=== PATIENT | male | born 1995 | race Caucasian/White ===

== ENCOUNTER 2018-03-05 19:29 | Observation (INO) | payer SELFPAY ==
[~2018-03-05] VITALS: Ht 182.9 cm; Wt 75.0 kg
[2018-03-05 19:31] VITALS: BP 101/50; PULSE 135; RESP 17; TEMP 98.9; O2SAT 94
[2018-03-05] MEDS ORDERED: SODIUM CHLOR 0.9% 1000 ML INJ 1,000 ML IV ONE (19:31)
[2018-03-05 19:35] VITALS: RESP 17; O2SAT 94
--- NOTE | 2018-03-05 19:39 | PD ---
HPI Chief Complaint: Seizure Time Seen by Provider: 19:31 Travel History International Travel<30 days: No Contact w/Intl Traveler<30days: No Traveled to known affect area: No History of Present Illness HPI This is a 23-year-old male with unknown medical history, presents via EMS after he had a reported 5 minute tonic-clonic seizure while at dinner with his girlfriend's parents. When paramedics arrived they state they found him postictal with frothing at the mouth. The patient was combative and not responding to questions. Per medics report that he appeared to start to be about to seize again and they administered 4 mg of Versed IV. Blood glucose was reported to be 141. Girlfriend reported to the paramedics that the patient had been playing video games all day. There is no reported substance ingestion. No further information could be obtained. [facility] Social History Tobacco Use: No (Denies) Allergies-Medications (Allergen,Severity, Reaction): Coded Allergies: No Allergy Information Available (Unverified , 03/05/18) Reported Meds & Prescriptions Reported Meds & Active Scripts Active No Active Prescriptions or Reported Medications Review of Systems ROS Limitations: Altered Mental Status (Postictal and not responding to questions.) Except as stated in HPI: all other systems reviewed are Neg Physical Exam Narrative GENERAL: Well developed well-nourished male who presents via EMS with altered sensorium. Patient is not responsive to questions. Patient is not actively seizing. SKIN: Focused skin assessment warm/dry. HEAD: Atraumatic. Normocephalic. EYES: Pupils equal and round. There is a right sided gaze. No scleral icterus. No injection or drainage. ENT: No nasal bleeding or discharge. Mucous membranes pink and moist. NECK: Trachea midline. No JVD. CARDIOVASCULAR: Sinus tachycardia with a rate in the 120s. No murmur appreciated. RESPIRATORY: No accessory muscle use. Clear to auscultation. Breath sounds equal bilaterally. GASTROINTESTINAL: Abdomen soft, non-tender, nondistended. Hepatic and splenic margins not palpable. MUSCULOSKELETAL: No obvious deformities. No clubbing. No cyanosis. No edema. NEUROLOGICAL: Obtunded however arousable to sternal rub. Right-sided lateral eye gaze. Observed moving extremities occasionally however not to command or cooperating with exam. Data Data Last Documented VS Orders Orders Complete Blood Count With Diff (03/05/18 19:31) Alcohol (Ethanol) (03/05/18 19:31) Drug Screen, Random Urine (03/05/18 19:31) Ct Brain W/O Iv Contrast(Rout) (03/05/18 ) Blood Glucose (03/05/18 19:31) Ecg Monitoring (03/05/18 19:31) Iv Access Insert/Monitor (03/05/18 19:31) Oximetry (03/05/18 19:31) Comprehensive Metabolic Panel (03/05/18 19:31) Sodium Chlor 0.9% 1000 Ml Inj (Ns 1000 M (03/05/18 19:31) Sodium Chloride 0.9% Flush (Ns Flush) (03/05/18 19:45) Fosphenytoin Inj (Cerebyx Inj) (03/05/18 20:15) Prochlorperazine Inj (Compazine Inj) (03/05/18 20:30) Lorazepam Inj (Ativan Inj) (03/05/18 21:15) Eeg Study (03/05/18 ) Consult Neurology (03/05/18 ) Place In Observation (03/05/18 ) Vital Signs (Adult) Q4H (03/05/18 21:10) Neuro Checks Q4H (03/05/18 21:10) Activity Oob With Assistance (03/05/18 21:10) Powder And Primer Canning Leader / Telemetry .CONTINUOUS (03/05/18 21:10) Intake + Output AMANDA.QSHIFT (03/05/18 21:10) Diet Regular Basic (03/06/18 Breakfast) Sodium Chlor 0.9% 1000 Ml Inj (Ns 1000 M (03/05/18 21:10) Sodium Chloride 0.9% Flush (Ns Flush) (03/05/18 21:15) Sodium Chloride 0.9% Flush (Ns Flush) (03/06/18 09:00) Comprehensive Metabolic Panel (03/06/18 06:00) Complete Blood Count With Diff (03/06/18 06:00) Scd Bilateral/Knee High AMANDA.BID (03/05/18 21:10) Sergey Bilateral/Knee High AMANDA.QSHIFT (03/05/18 21:13) Acetaminophen (Tylenol) (03/05/18 21:15) Docusate Sodium-Senna (Kaitlyn-Colace) (03/06/18 09:00) Magnesium Hydroxide Liq (Milk Of Magnesi (03/05/18 21:15) Sennosides (Senokot) (03/05/18 21:15) Bisacodyl Supp (Dulcolax Supp) (03/05/18 21:15) Lactulose Liq (Lactulose Liq) (03/05/18 21:15) Admit Order (Ed Use Only) (03/05/18 21:15) Mri Brain W/O Contrast (03/06/18 ) Labs Laboratory Tests Test 03/05/18 19:30 White Blood Count 10.1 TH/MM3 Red Blood Count 4.69 MIL/MM3 Hemoglobin 13.7 GM/DL Hematocrit 40.6 % Mean Corpuscular Volume 86.6 FL Mean Corpuscular Hemoglobin 29.2 PG Mean Corpuscular Hemoglobin Concent 33.7 % Red Cell Distribution Width 12.2 % Platelet Count 298 TH/MM3 Mean Platelet Volume 8.1 FL Neutrophils (%) (Auto) 56.7 % Lymphocytes (%) (Auto) 31.2 % Monocytes (%) (Auto) 9.2 % Eosinophils (%) (Auto) 2.1 % Basophils (%) (Auto) 0.8 % Neutrophils # (Auto) 5.7 TH/MM3 Lymphocytes # (Auto) 3.1 TH/MM3 Monocytes # (Auto) 0.9 TH/MM3 Eosinophils # (Auto) 0.2 TH/MM3 Basophils # (Auto) 0.1 TH/MM3 CBC Comment DIFF FINAL Differential Comment Blood Urea Nitrogen 12 MG/DL Creatinine 0.93 MG/DL Random Glucose 88 MG/DL Total Protein 7.1 GM/DL Albumin 3.6 GM/DL Calcium Level 8.2 MG/DL Alkaline Phosphatase 95 U/L Aspartate Amino Transf (AST/SGOT) 21 U/L Alanine Aminotransferase (ALT/SGPT) 29 U/L Total Bilirubin 0.3 MG/DL Sodium Level 141 MEQ/L Potassium Level 3.8 MEQ/L Chloride Level 105 MEQ/L Carbon Dioxide Level 17.8 MEQ/L Anion Gap 18 MEQ/L Estimat Glomerular Filtration Rate 103 ML/MIN Urine Opiates Screen NEG Urine Barbiturates Screen NEG Urine Amphetamines Screen NEG Urine Benzodiazepines Screen NEG Urine Cocaine Screen NEG Urine Cannabinoids Screen NEG Ethyl Alcohol Level LESS THAN 3 MG/DL MDM Medical Decision Making Medical Screen Exam Complete: Yes Emergency Medical Condition: Yes Differential Diagnosis New onset seizure versus intracranial lesion versus intracranial hemorrhage versus substance-induced seizure Narrative Course 23-year-old male presents after having tonic-clonic seizure. Patient was given Versed in the field. Initially we are told the patient had no history of seizure disorder. The patient was loaded with fosphenytoin, 1 g. We were able to obtain history from patient's mother that he had had 3 seizures when he was a young child. The patient will be admitted and have an EEG. Case discussed with the admitting physician, and she is amenable to the plan. Diagnosis Primary Impression: Seizure Admitting Information Admitting Physician Requests: Observation Scripts No Active Prescriptions or Reported Meds Charlie Anderson MD Mar 05, 2018 19:39
[2018-03-05] MEDS ORDERED: SODIUM CHLORIDE 0.9% FLUSH 10 ML FLUSH IVF PRN (19:45)
--- NOTE | 2018-03-05 20:04 | RADRPT ---
EXAM DATE: 03/05/2018 8:00 PM EDT AGE/SEX: 23 years / Male INDICATIONS: Seizure with right sided gaze. CLINICAL DATA: This is the patient's initial encounter. Patient reports that signs and symptoms have been present for 1 day and indicates a pain score of 0/10. MEDICAL/SURGICAL HISTORY: None. None. RADIATION DOSE: 56.35 CTDI (mGy) COMPARISON: No prior [place] exams available for comparison. TECHNIQUE: CT of the head without contrast. Using automated exposure control and adjustment of the mA and/or kV according to patient size, radiation dose was kept as low as reasonably achievable to ob tain optimal diagnostic quality images. FINDINGS: Cerebrum: The ventricles are normal for age. No evidence of midline shift, mass lesion, hemorrhage or acute infarction. No extraaxial fluid collections are seen. Posterior Fossa: The cerebellum and brainstem are intact. The 4th ventricle is midline. The cerebe llopontine angle is unremarkable. Extracranial: The visualized portion of the orbits is intact. Skull: The calvaria is intact. No evidence of skull fracture. CONCLUSION: 1. Negative CT Head non contrast. Electronically signed by: Donavan Newman MD 03/05/2018 8:03 PM EDT
[2018-03-05 20:14] LABS: AUTOMATED NEUTROPHIL # 5.7 TH/MM3 (1.8-7.7); BASOPHIL # 0.1 TH/MM3 (0-0.2); BASOPHIL % 0.8 % (0.0-2.0); EOSINOPHIL # 0.2 TH/MM3 (0-0.4); EOSINOPHIL % 2.1 % (0.0-4.0); HEMATOCRIT 40.6 % (39.0-51.0); HEMOGLOBIN 13.7 GM/DL (13.0-17.0); LYMPH % 31.2 % (9.0-44.0); LYMPHOCYTE # 3.1 TH/MM3 (1.0-4.8); MEAN CELL VOLUME 86.6 FL (80.0-100.0); MEAN CORPUSCULAR HEMOGLOBIN 29.2 PG (27.0-34.0); MEAN CORPUSCULAR HGB CONC 33.7 % (32.0-36.0); MEAN PLATELET VOLUME 8.1 FL (7.0-11.0); MONO % 9.2 % (0.0-8.0); MONOCYTE # 0.9 TH/MM3 (0-0.9); NEUT % 56.7 % (16.0-70.0); PLATELET COUNT 298 TH/MM3 (150-450); RED BLOOD COUNT 4.69 MIL/MM3 (4.50-5.90); RED CELL DISTRIBUTION WIDTH 12.2 % (11.6-17.2); WHITE BLOOD COUNT 10.1 TH/MM3 (4.0-11.0)
[2018-03-05] MEDS ORDERED: FOSPHENYTOIN INJ 1,000 MGPE in SODIUM CHLORIDE 0.9% INJ 50 ML IV ONE (20:15)
[2018-03-05] MEDS ORDERED: PROCHLORPERAZINE INJ 10 MG/2 ML VIAL IV PUSH ONE (20:30)
[2018-03-05 20:33] LABS: ALBUMIN 3.6 GM/DL (3.4-5.0); BICARBONATE 17.8 MEQ/L (21.0-32.0); BLOOD UREA NITROGEN 12 MG/DL (7-18); CALCIUM 8.2 MG/DL (8.5-10.1); CHLORIDE 105 MEQ/L (98-107); CREATININE 0.93 MG/DL (0.60-1.30); GLOMERULAR FILTRATION RATE 103 ML/MIN (>89); GLUCOSE,RANDOM 88 MG/DL (74-106); SODIUM (NA) 141 MEQ/L (136-145)
[2018-03-05 20:34] LABS: ALT (GPT) 29 U/L (12-78); AST (GOT) 21 U/L (15-37)
[2018-03-05 20:37] LABS: ALKALINE PHOSPHATASE 95 U/L (45-117); TOTAL BILIRUBIN ADULT 0.3 MG/DL (0.2-1.0); TOTAL PROTEIN 7.1 GM/DL (6.4-8.2)
--- NOTE | 2018-03-05 21:13 | HHI.HP ---
[facility] No Primary Care Physician Admission Diagnosis Diagnoses: (1) Seizure Diagnosis: Principal Travel History International Travel<30 Days: No Contact w/Intl Traveler <30 Da: No Traveled to Known Affected Are: No History of Present Illness This is a 23-year-old male with no reported PMH who is brought to the ER by EMS after seizure-like activity. Pt's friend at bedside witnessed episode, states they were out to dinner when pt had acute onset of unresponsiveness and drooling at the mouth. Friend states pt slumped over and was noted to have some shaking, no incontinence. States episode lasted approx 3-4 minutes. EMS thought pt appeared to start having another seizure and administered Versed 4mg. Patient unable to provide history secondary to postictal state and medication. Per fiance at bedside, pt w/ h/o seizure as a child (age 5yrs) but no seizures since then. States pt was playing video games all day today. On arrival, BP 101/50, HR 135, O2 sat 94% on RA, Afebrile. CBC unremarkable. Chemistry unremarkable except for AG 18. Urine Drug Screen negative. Alcohol negative. CT Head with no acute findings. No further seizure activity while in the ER. S/p Cerebyx 1gm IV. Review of Systems Except as stated in HPI: all other systems reviewed are Neg ROS: Unable to obtain secondary to postictal state and medication Past Family Social History Past Medical History PMH: None Past Surgical History PAST SURGICAL HISTORY: None Allergies: Coded Allergies: No Allergy Information Available (Unverified , 03/05/18) Family History PAST FAMILY HISTORY: Reviewed. No h/o DM or CAD Social History PAST SOCIAL HISTORY: Reportedly negative for alcohol, tobacco or drugs. Physical Exam Vital Signs Vital Signs Date Time Temp Pulse Resp B/P (MAP) Pulse Ox O2 Delivery O2 Flow Rate FiO2 03/05/18 19:35 17 94 Room Air 03/05/18 19:33 135 17 94 03/05/18 19:31 98.9 135 17 101/50 (67) 94 Physical Exam PE: GENERAL: Young white male in no acute distress, lethargic/postictal, not answering questions. Fiance and friend at bedside. HEENT: PERRLA, EOMI. No scleral icterus or conjunctival pallor. No lid lag or facial droop. CARDIOVASCULAR: Regular rate and rhythm. No obvious murmurs to auscultation. No chest tenderness to palpation. RESPIRATORY: No obvious rhonchi or wheezing. Clear to auscultation. Breath sounds equal bilaterally. GASTROINTESTINAL: Abdomen soft, non-tender, nondistended. BS normal. MUSCULOSKELETAL: Extremities without clubbing, cyanosis, or edema. No obvious deformities. NEUROLOGICAL: Postictal/lethargic. No focal neurologic deficits. Moving both upper and lower extremities spontaneously. Laboratory Laboratory Tests Test 03/05/18 19:30 White Blood Count 10.1 Red Blood Count 4.69 Hemoglobin 13.7 Hematocrit 40.6 Mean Corpuscular Volume 86.6 Mean Corpuscular Hemoglobin 29.2 Mean Corpuscular Hemoglobin Concent 33.7 Red Cell Distribution Width 12.2 Platelet Count 298 Mean Platelet Volume 8.1 Neutrophils (%) (Auto) 56.7 Lymphocytes (%) (Auto) 31.2 Monocytes (%) (Auto) 9.2 Eosinophils (%) (Auto) 2.1 Basophils (%) (Auto) 0.8 Neutrophils # (Auto) 5.7 Lymphocytes # (Auto) 3.1 Monocytes # (Auto) 0.9 Eosinophils # (Auto) 0.2 Basophils # (Auto) 0.1 CBC Comment DIFF FINAL Differential Comment Blood Urea Nitrogen 12 Creatinine 0.93 Random Glucose 88 Total Protein 7.1 Albumin 3.6 Calcium Level 8.2 Alkaline Phosphatase 95 Aspartate Amino Transf (AST/SGOT) 21 Alanine Aminotransferase (ALT/SGPT) 29 Total Bilirubin 0.3 Sodium Level 141 Potassium Level 3.8 Chloride Level 105 Carbon Dioxide Level 17.8 Anion Gap 18 Estimat Glomerular Filtration Rate 103 Urine Opiates Screen NEG Urine Barbiturates Screen NEG Urine Amphetamines Screen NEG Urine Benzodiazepines Screen NEG Urine Cocaine Screen NEG Urine Cannabinoids Screen NEG Ethyl Alcohol Level LESS THAN 3 Result Diagram: 03/05/18192903/05/181929 Caprini VTE Risk Assessment Caprini VTE Risk Assessment: No/Low Risk (score <= 1) Caprini Risk Assessment Model Point Value = 1 Point Value = 2 Point Value = 3 Point Value = 5 Age 41-60 Minor surgery BMI > 25 kg/m2 Swollen legs Varicose veins or History of unexplained or recurrent spontaneous Oral contraceptives or hormone replacement Sepsis (< 1 month) Serious lung disease, including pneumonia (< 1 month) Abnormal pulmonary function Acute myocardial infarction Congestive heart failure (< 1 month) History of inflammatory bowel disease Medical patient at bed rest Age 61-74 Arthroscopic surgery Major open surgery (> 45 min) Laparoscopic surgery (> 45 min) Malignancy Confined to bed (> 72 hours) Immobilizing plaster cast Central venous access Age >= 75 History of VTE Family history of VTE Factor V Leiden Prothrombin [id number] Lupus anticoagulant Anticardiolipin antibodies Elevated serum homocysteine Heparin-induced thrombocytopenia Other congenital or acquired thrombophilia Stroke (< 1 month) Elective arthroplasty Hip, pelvis, or leg fracture Acute spinal cord injury (< 1 month) Prophylaxis Regimen Total Risk Factor Score Risk Level Prophylaxis Regimen 0-1 Low Early ambulation 2 Moderate Order ONE of the following: *Sequential Compression Device (SCD) *Heparin 5000 units SQ BID 3-4 Higher Order ONE of the following medications: *Heparin 5000 units SQ TID *Enoxaparin/Lovenox 40 mg SQ daily (WT < 150 kg, CrCl > 30 mL/min) *Enoxaparin/Lovenox 30 mg SQ daily (WT < 150 kg, CrCl > 10-29 mL/min) *Enoxaparin/Lovenox 30 mg SQ BID (WT < 150 kg, CrCl > 30 mL/min) AND/OR *Sequential Compression Device (SCD) 5 or more Highest Order ONE of the following medications: *Heparin 5000 units SQ TID (Preferred with Epidurals) *Enoxaparin/Lovenox 40 mg SQ daily (WT < 150 kg, CrCl > 30 mL/min) *Enoxaparin/Lovenox 30 mg SQ daily (WT < 150 kg, CrCl > 10-29 mL/min) *Enoxaparin/Lovenox 30 mg SQ BID (WT < 150 kg, CrCl > 30 mL/min) AND *Sequential Compression Device (SCD) Assessment and Plan Problem List: (1) Seizure ICD Code: R56.9 - Unspecified convulsions Assessment and Plan A/P: 1. Seizure: x1, witnessed by family/friends, no h/o seizure activity except as a child (5yrs old) likely febrile seizure, not on anticonvulsants per family/ friends, s/p Cerebyx 1gm in ER. +postictal/lethargic. CT Head w/ no acute findings, images reviewed by me. Neuro Checks. Urine Drug Screen negative. Check MRI Brain to eval for underlying lesion/tumor, EEG, Consult Neurology for further eval/recommendations. Ativan prn. Seizure Precautions. 2. DVT Prophylaxis: SCD/Teds 3. Social work for d/c planning as needed. 4. Case discussed w/ ER physician at length, labs/records/imaging reviewed by me. Claudette Daniel MD Mar 05, 2018 21:13
[2018-03-05] MEDS ORDERED: LORazepam 2 MG/ML VIAL IV PUSH PRN (21:15)
[2018-03-05] MEDS ORDERED: SODIUM CHLORIDE 0.9% FLUSH 10 ML FLUSH IV FLUSH PRN (21:15)
[2018-03-05] MEDS ORDERED: BISACODYL 10 MG SUPP RECTAL PRN (21:15)
[2018-03-05] MEDS ORDERED: MAGNESIUM HYDROXIDE SUSP 30 ML CUP PO PRN (21:15)
[2018-03-05] MEDS ORDERED: SENNOSIDES 8.6 MG TAB PO PRN (21:15)
[2018-03-05] MEDS ORDERED: ACETAMINOPHEN 325 MG TAB PO PRN (21:15)
[2018-03-05] MEDS ORDERED: LACTULOSE SYRUP 20 GM/30 ML CUP PO PRN (21:15)
[2018-03-05] MEDS: SODIUM CHLOR 0.9% 1000 ML INJ 1,000 ML IV SCH (21:31)
[2018-03-05 22:40] VITALS: BP 121/58; PULSE 82; RESP 18; TEMP 98.2; O2SAT 98
[2018-03-06 03:47] VITALS: BP 117/62; PULSE 105; RESP 18; TEMP 98; O2SAT 98
[2018-03-06 04:03] LABS: AUTOMATED NEUTROPHIL # 9.3 TH/MM3 (1.8-7.7); BASOPHIL % 0.2 % (0.0-2.0); HEMATOCRIT 39.2 % (39.0-51.0); HEMOGLOBIN 13.5 GM/DL (13.0-17.0); LYMPH % 11.7 % (9.0-44.0); LYMPHOCYTE # 1.4 TH/MM3 (1.0-4.8); MEAN CELL VOLUME 86.1 FL (80.0-100.0); MEAN CORPUSCULAR HEMOGLOBIN 29.6 PG (27.0-34.0); MEAN CORPUSCULAR HGB CONC 34.3 % (32.0-36.0); MEAN PLATELET VOLUME 7.9 FL (7.0-11.0); MONO % 10.2 % (0.0-8.0); MONOCYTE # 1.2 TH/MM3 (0-0.9); NEUT % 77.9 % (16.0-70.0); PLATELET COUNT 229 TH/MM3 (150-450); RED BLOOD COUNT 4.56 MIL/MM3 (4.50-5.90); RED CELL DISTRIBUTION WIDTH 11.9 % (11.6-17.2); WHITE BLOOD COUNT 11.9 TH/MM3 (4.0-11.0)
[2018-03-06 04:30] LABS: ALBUMIN 3.5 GM/DL (3.4-5.0); ALT (GPT) 29 U/L (12-78); AST (GOT) 28 U/L (15-37); BICARBONATE 22.7 MEQ/L (21.0-32.0); BLOOD UREA NITROGEN 12 MG/DL (7-18); CALCIUM 8.5 MG/DL (8.5-10.1); CHLORIDE 108 MEQ/L (98-107); CREATININE 1.06 MG/DL (0.60-1.30); GLOMERULAR FILTRATION RATE 88 ML/MIN (>89); GLUCOSE,RANDOM 99 MG/DL (74-106); SODIUM (NA) 142 MEQ/L (136-145)
[2018-03-06 04:32] LABS: ALKALINE PHOSPHATASE 96 U/L (45-117); TOTAL BILIRUBIN ADULT 0.4 MG/DL (0.2-1.0); TOTAL PROTEIN 6.8 GM/DL (6.4-8.2)
[2018-03-06] MEDS: SODIUM CHLOR 0.9% 1000 ML INJ 1,000 ML IV SCH ×2 (07:53→17:10)
[2018-03-06 08:00] VITALS: BP 107/61; PULSE 84; PULSE 89; RESP 19; TEMP 96.5; O2SAT 99
--- NOTE | 2018-03-06 08:59 | RADRPT ---
EXAM DATE: 03/06/2018 8:54 AM EDT AGE/SEX: 23 years / Male INDICATIONS: Seizures. CLINICAL DATA: This is the patient's initial encounter. Patient reports that signs and symptoms have been present for 1 day and indicates a pain score of 0/10. MEDICAL/SURGICAL HISTORY: None. None. COMPARISON: [facility] [place], CT BRAIN W/O CONTRAST, 03/05/2018. . TECHNIQUE: Multiplanar, multisequence examination of the brain was performed without contrast. FINDINGS: Cerebrum: The ventricles are normal for age. No evidence of midline shift, mass lesion, hemorrhage or acute infarction. No extraaxial fluid collections are seen. The pituitary gland and suprasellar cistern are normal in configuration. White Matter: No significant signal abnormalities are seen in the white matter. Posterior Fossa: The cerebellum and brainstem are intact. The 4th ventricle is midline. The cerebel lopontine angle is unremarkable. The cerebellar tonsils are normal in position. Diffusion Imaging: No focal areas of restricted diffusion are seen. No evidence of acute infarction . Extracranial: The visualized portions of the orbits and paranasal sinuses are unremarkable. CONCLUSION: 1. Negative MR Brain non contrast. Electronically signed by: June Orozco MD 03/06/2018 8:57 AM EDT
[2018-03-06] MEDS ORDERED: SODIUM CHLORIDE 0.9% FLUSH 10 ML FLUSH IV FLUSH SCH (09:00)
[2018-03-06] MEDS ORDERED: DOCUSATE SODIUM 50 MG/SENNA 8.6 MG TAB PO SCH (09:00)
--- NOTE | 2018-03-06 10:40 | MB ---
cc: Delfina West MD DATE: 03/06/2018 REASON FOR CONSULTATION: Seizure. HISTORY OF PRESENT ILLNESS: This is a 23-year-old male with no significant medical history, comes in after he was with his friends having dinner and started to have what was described as a seizure, eyes rolled back, head fell backwards. They subsequently put him on the floor. There was some shaking, no incontinence. He does have a small little bite on the tip of his tongue on the left. The event lasted a couple of minutes. EMS was called. He was brought in. It was thought by EMS he may be having another seizure. They gave him some Versed. He woke up in the ED, he was postictal and was confused from medication most likely. His fiancee is at bedside. He states that he has never had a seizure, although in the chart, it states as a child, age 5, but he denies any seizures as a child to me. Denies febrile seizures. He denies head trauma, meningitis or any [employer] infections. 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 He was born via without complication. There is a history of video games, but he was at dinner, he was not playing any games. On arrival, his vitals were stable. CT head, MRI brain, UDS all negative. They gave him a gram of Cerebyx in the ER. PAST MEDICAL HISTORY: None. ALLERGIES: NONE. FAMILY HISTORY/SOCIAL HISTORY: No history in the family of epilepsy. PHYSICAL EXAMINATION: VITAL SIGNS: Temperature is 96.5, pulse 89, respiratory rate 19, blood pressure 107/61, saturating at 99% on room air. NECK: Supple, no bruits. HEART: Regular. NEUROLOGIC: He is awake, alert. He is oriented. He is fluent. His pupils are reactive. Visual galdamez full. Face symmetrical. Tongue midline. Motor: There is no tremor, drift or leg lag. Cerebellar testing normal. Toes downgoing. DTRs are 1-2+. Sensory normal. Gait is withheld at this time. LABORATORY DATA: Reviewed. His white count today is 11.9, neutrophil 77.9. Chemistry, his CO2 was 17.8, anion gap of 18, today is 11. GFR 88. Toxicology was negative. Alcohol level was negative. Brain MRI without was unremarkable. IMPRESSION/PLAN: New onset seizure, etiology really unknown at this point in time, he is at the age where certainly he can develop epilepsy. No illicit substances on board that have been tested. He denies any use of anything new, any new medications, alcoholic, etc. Recommend at this point in time, we will get the EEG. He seems back to baseline. However, for 1 event, I would not put him on antiepileptic medication. We will continue to monitor him. Have him discharged. I would like him to have at least a Holter monitor prolonged if possible for any dysrhythmia, just to be more complete. If his EEG is unremarkable, he can be discharged home. He should be advised not to drive and to avoid video games. Followup in the office in 2 weeks. Continue recommendations as outlined. MD SHYAM Pepper/JOSIAS , 10:03 AM , 10:39 AM
[2018-03-06 12:00] VITALS: BP 116/56; PULSE 87; RESP 18; TEMP 96.8; O2SAT 98
--- NOTE | 2018-03-06 13:31 | HHI.PR ---
Subjective Remarks Follow-up seizure. Patient has had no further seizure activity. Denies headache, vision change, chest pain, dyspnea, nausea, vomiting. Objective Vitals Vital Signs Date Time Temp Pulse Resp B/P (MAP) Pulse Ox O2 Delivery O2 Flow Rate FiO2 03/06/18 12:00 96.8 87 18 116/56 (76) 98 03/06/18 08:00 96.5 89 19 107/61 (76) 99 03/06/18 08:00 84 03/06/18 03:47 98.0 105 18 117/62 (80) 98 03/06/18 01:34 18 03/05/18 22:40 98.2 82 18 121/58 (79) 98 03/05/18 19:35 17 94 Room Air 03/05/18 19:33 135 17 94 03/05/18 19:31 98.9 135 17 101/50 (67) 94 Result Diagram: 03/06/18 0345 03/06/18 0345 Imaging Last Impressions Brain MRI 03/06/18 0000 Signed Impressions: CONCLUSION: 1. Negative MR Brain non contrast. Head CT 03/05/18 0000 Signed Impressions: CONCLUSION: 1. Negative CT Head non contrast. Objective Remarks General: No acute distress. Heart: Regular rate and rhythm. No murmur. Lungs: Clear to auscultation bilaterally. No wheezes, rales, or rhonchi. Breathing is nonlabored. Abdomen: Soft, nontender, nondistended. Extremities: No lower extremity edema. Psych: Alert and oriented. Neuro: Normal speech. No focal deficits noted. Procedures None Urinary Catheter: No Vascular Central Line Catheter: No A/P Problem List: (1) Seizure ICD Code: R56.9 - Unspecified convulsions Assessment and Plan 1. Seizure: Appreciate neurology recommendations. No anticonvulsants at this time. Patient advised to avoid driving, video games, swimming/bathing alone. MRI brain and head CT are negative. EEG is pending. Per neurology, patient can be discharged home if his EEG is unremarkable. 2. DVT prophylaxis: LANCE Carrion. Discharge Planning When cleared by neurology. Zacarias Montana MD Mar 06, 2018 13:30
[2018-03-06 16:00] VITALS: BP 116/81; PULSE 89; RESP 19; TEMP 97.9; O2SAT 99
--- NOTE | 2018-03-06 16:00 | HHI.DCPOC ---
Discharge Care Plan Diagnosis: (1) Seizure Goals to Promote Your Health * To prevent worsening of your condition and complications * To maintain your health at the optimal level Directions to Meet Your Goals Take your medications as prescribed Follow your dietary instruction Follow activity as directed Keep your appointments as scheduled Take your immunizations and boosters as scheduled If your symptoms worsen call your PCP, if no PCP go to Urgent Care Center or Emergency Room Smoking is Dangerous to Your Health. Avoid second hand smoke Call the 24-hour hour crisis hotline for domestic abuse at Josephine Patton PA-C Mar 06, 2018 4:00 pm
[2018-03-06 17:00] VITALS: PULSE 84
--- NOTE | 2018-03-06 18:56 | MG ---
cc: Delfina West MD ELECTROENCEPHALOGRAM NUMBER: [id number]. [facility]: Room F71, with hyperventilation and photic. Hyperventilation with excellent effort. Awake, drowsy asleep study. MRI negative. CLINICAL HISTORY: A 23-year-old man who had general tonic-clonic seizure the night before the EEG. Currently, not on any medicine. DESCRIPTION OF RECORD: The patient has an overall alpha rhythm of 9 Hz, 20-40 microvolts. Symmetrical background, well organized. Some mild artifact. Otherwise, symmetrical. Photic stimulation does elicit an overall good posterior driving response. No epileptiform features noted. Hyperventilation is performed. Excellent effort. IMPRESSION: Normal appearing electroencephalogram. No epileptiform features in this one recording. Clinical correlation. MD SHYAM Pepper/JAMILAH , 06:15 PM , 06:54 PM
== END 2018-03-06 19:44 | disposition home or self-care (01) ==
LOC: NEPE 19:29 → NEDA 21:17 → NEPFCDU 22:36
PROVIDERS: ADMIT Family Medicine; ATTEND Family Medicine
DX: R56.9 Unspecified convulsions (principal); R53.83 Other fatigue
CPT/HCPCS: 70450; 70551; 80053; 80307; 85025; 95819; 96361; 96365; 96375; 96376; 99285; G0378; J0780; J7030; Q2009